=== PATIENT | male | born 1990 | race Caucasian/White ===

== ENCOUNTER 2019-12-20 22:57 | Emergency (ER) | payer MEDICAID ==
[~2019-12-20] VITALS: Ht 162.6 cm; Wt 66.2 kg
[2019-12-20 23:00] VITALS: Ht 162.6 cm; Wt 66.2 kg
[2019-12-21 00:47] LABS: BASOPHIL % 0.7 % (0-2); PLATELET COUNT 211 x10^3mcL (130-400); RED CELL DISTRIBUTION WIDTH 13.8 % (11.5-14.5)
[2019-12-21 00:55] LABS: CALCIUM 8.8 mg/dL (8.5-10.1); CARBON DIOXIDE 32.9 mmol/L (21-32); CHLORIDE SERUM 106 mmol/L (98-107); CREATININE SERUM 0.8 mg/dL (0.7-1.3); GFR1 > 60 mL/min; GLUCOSE SERUM 75 mg/dL (74-106); SODIUM SERUM 142 mmol/L (136-145)
[2019-12-21 01:09] LABS: ALBUMIN 3.7 g/dL (3.4-5.0); ALKALINE PHOSPHATASE 82 U/L (46-116); ALT/SGPT 31 U/L (16-63); AST/SGOT 18 U/L (15-37); BILIRUBIN TOTAL 0.2 mg/dL (0.20-1.00); FREE T4 0.99 ng/dL (0.76-1.46); TOTAL PROTEIN, SERUM 6.8 g/dL (6.4-8.2)
[2019-12-21 02:36] VITALS: BP 137/88
== END 2019-12-21 02:36 | disposition home or self-care (01) ==
LOC: ED 22:57
PROVIDERS: Emergency Medicine
DX: R07.89 Other chest pain (principal); R51 Headache; M79.10 Myalgia, unspecified site; Z20.828 Contact with and (suspected) exposure to other viral communicable diseases
CPT/HCPCS: 84439; Q0092